=== PATIENT | female | born 1960 | race Caucasian/White ===

== ENCOUNTER 2018-07-11 19:04 | Emergency (ER) | payer OTHER ==
[~2018-07-11] VITALS: Ht 162.6 cm; Wt 120.7 kg
--- NOTE | 2018-07-11 19:25 | ED.ADGEN ---
Past History Past Medical History: CHF, GERD, Hypertension, Other Past Surgical History: Hysterectomy, Other Alcohol Use: None Drug Use: None Adult General Chief Complaint Chief Complaint ".. I think my vertigo is back.. it may be sinusitis.. because I had this dental work here on the [place] and have a temporary bridge... . and last time it caused a sinus infection... I ve had this before... I am fine if I do not tip my head back. .. and it was worse when she accelerated the car....I get nauseated.. and feels like room is spinning.... " HPI HPI Patient is a 57 year old female who presents with above hx and complaints of dizzy and vertigo with head movement. Pt. has nausea with on set of vertigo like symptoms. Patient denies any visual changes. On tilting head back and reclining, pt. report increased sensation of spinning and sensation of nausea. Pt. did exhibit nystagmus with this type of movement. Patient denies any trauma. Patient denies any fever. 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 No history of bad food. No history of travel. Patient reports anti nausea meds helped in the past when she developed this complaint. Patient normally follows with Dr. Malik Schaffer. Review of Systems Review of Systems Constitutional: Denies fever or chills [] Eyes: Denies change in visual acuity, redness, or eye pain [] HENT: Denies nasal congestion or sore throat [] Respiratory: Denies cough or shortness of breath [] Cardiovascular: No additional information not addressed in HPI [] GI: Denies abdominal pain, , vomiting, bloody stools or diarrhea []Hx. complaints of nausea intermittently. : Denies dysuria or hematuria [] Musculoskeletal: Denies back pain or joint pain [] Integument: Denies rash or skin lesions [] Neurologic: Denies headache, focal weakness or sensory changes Pt. complaints of dizziness Endocrine: Denies polyuria or polydipsia [] All other systems were reviewed and found to be within normal limits, except as documented in this note. Family History Family History Noncontributory Current Medications Current Medications Current Medications Medications (Trade) Dose Ordered Sig/Patrick Start Time Stop Time Status Last Admin Dose Admin Aspirin (Children'S Aspirin) 81 mg 1X ONCE 07/11/18 21:00 07/11/18 21:01 DC Carvedilol (Coreg) 6.25 mg BIDWMEALS 07/11/18 21:00 07/11/18 22:23 DC Diphenhydramine HCl (Benadryl) 50 mg STK-MED ONCE 07/11/18 19:55 07/11/18 19:57 DC Lactated Ringer's 1,000 ml @ 1,000 mls/hr Q1H 07/11/18 19:30 07/11/18 20:29 DC 07/11/18 20:26 1,000 MLS/HR Ondansetron HCl (Zofran) 8 mg 1X ONCE 07/11/18 20:00 07/11/18 20:01 DC 07/11/18 20:24 8 MG Prochlorperazine Edisylate (Compazine) 10 mg 1X ONCE 07/11/18 20:00 07/11/18 20:01 DC 07/11/18 20:25 10 MG Allergies Allergies Allergies Coded Allergies Type Severity Reaction Last Updated Verified erythromycin base Allergy Severe 07/11/18 Yes sulfamethoxazole Allergy Severe 07/11/18 Yes trimethoprim Allergy Severe 07/11/18 Yes Physical Exam Physical Exam Constitutional: Mild distress, non-toxic appearance. [] HENT: Normocephalic, atraumatic, bilateral external ears normal, oropharynx moist, no oral exudates, nose normal. [] Eyes: PERRLA, EOMI, conjunctiva normal, no discharge. Glasses] Neck: Normal range of motion, no tenderness, supple, no stridor. [] No bruits. Cardiovascular:Heart rate regular rhythm, no murmur []PMI to the left Lungs & Thorax: Bilateral breath sounds equal at apex with scattered crackles throughout on auscultation [] Abdomen: Bowel sounds normal, soft, no tenderness, no masses, no pulsatile masses. []Obese . Old surgery scars. Skin: Warm, dry, no erythema, no rash. [] Back: No tenderness, no CVA tenderness. [] Extremities: No tenderness, no cyanosis, no clubbing, ROM intact, no edema. [] Neurologic: Alert and oriented X 3, normal motor function, normal sensory function, no focal deficits noted. []DTRs +2 patella and brachial. Capsule Maker equal. Distal sensation present with 128. AC > Bone conduction. Some lateralization to Rt. with Bone conduction. Pt.is. right-hand dominant. Psychologic: Affect anxious, judgement normal, mood normal. [] Current Patient Data Vital Signs Vital Signs Date Time Temp Pulse Resp B/P (MAP) Pulse Ox O2 Delivery O2 Flow Rate FiO2 07/11/18 22:02 82 18 167/93 (117) 97 07/11/18 19:08 97.8 Room Air Lab Results Laboratory Tests Test 07/11/18 19:28 White Blood Count 5.8 x10^3/uL (4.0-11.0) Red Blood Count 4.84 x10^6/uL (3.50-5.40) Hemoglobin 13.4 g/dL (12.0-15.5) Hematocrit 40.2 % (36.0-47.0) Mean Corpuscular Volume 83 fL (79-100) Mean Corpuscular Hemoglobin 28 pg (25-35) Mean Corpuscular Hemoglobin Concent 33 g/dL (31-37) Red Cell Distribution Width 14.0 % (11.5-14.5) Platelet Count 214 x10^3/uL (140-400) Neutrophils (%) (Auto) 78 % (31-73) H Lymphocytes (%) (Auto) 17 % (24-48) L Monocytes (%) (Auto) 5 % (0-9) Eosinophils (%) (Auto) 0 % (0-3) Basophils (%) (Auto) 0 % (0-3) Neutrophils # (Auto) 4.5 x10^3uL (1.8-7.7) Lymphocytes # (Auto) 1.0 x10^3/uL (1.0-4.8) Monocytes # (Auto) 0.3 x10^3/uL (0.0-1.1) Eosinophils # (Auto) 0.0 x10^3/uL (0.0-0.7) Basophils # (Auto) 0.0 x10^3/uL (0.0-0.2) Erythrocyte Sedimentation Rate 36 (0-25) H Prothrombin Time 9.9 SEC (9.4-11.4) Prothrombin Time INR 1.0 (0.9-1.1) PTT 28 SEC (23-33) D-Dimer (Ynes) 0.61 mg/L (0.00-0.50) H Sodium Level 143 mmol/L (136-145) Potassium Level 3.9 mmol/L (3.5-5.1) Chloride Level 105 mmol/L (98-107) Carbon Dioxide Level 29 mmol/L (21-32) Anion Gap 9 (6-14) Blood Urea Nitrogen 14 mg/dL (7-20) Creatinine 1.4 mg/dL (0.6-1.0) H Estimated GFR (Cockcroft-Gault) 38.8 Glucose Level 119 mg/dL (70-99) H Calcium Level 9.3 mg/dL (8.5-10.1) Magnesium Level 1.9 mg/dL (1.8-2.4) Total Bilirubin 0.4 mg/dL (0.2-1.0) Direct Bilirubin 0.1 mg/dL (0.0-0.2) Aspartate Amino Transferase (AST) 14 U/L (15-37) L Alanine Aminotransferase (ALT) 28 U/L (14-59) Alkaline Phosphatase 93 U/L (46-116) Creatine Kinase 20 U/L (26-192) L Troponin I Quantitative < 0.017 ng/mL (0-0.055) [id number]-Gkr-[id number]-Type Natriuretic Peptide 1035 pg/mL (0-124) H Total Protein 7.3 g/dL (6.4-8.2) Albumin 3.6 g/dL (3.4-5.0) Lipase 112 U/L (73-393) EKG EKG My interpretation EKG shows sinus rhythm at 78 bpm. There is some nonspecific contour changes in anterior septal leads. But no findings acute STEMI of contralateral changes.[] Radiology/Procedures Radiology/Procedures My interpretation of chest x-ray shows borderline cardiac silhouette. No large infiltrate. Does have increased cephalization consistent with mild CHF.[] CT head shows an Oval 6 x 6 mm hyperdense lesion right middle of the aubree protruding into the fourth ventricle- possible hemorrhagic lesion, acute hemorrhage, hyper dense mass. See formal report when available. Radiology recommended MRI with and without contrast. Course & Med Decision Making Course & Med Decision Making Pertinent Labs and Imaging studies reviewed. (See chart for details) Discussed presentation, testing and treatment plan with Dr. Alonso- will transfer to [facility] for neurology/ neurosurgery consult- and MRI with and without contrast. [] Final Impression Final Impression 1. Vertigo complaints 2. Possible acute hemorrhagic or hyperdense mass lesion aubree 3. Elevated ESR 36 4. Elevated d-dimer 0.61 5. Elevated creatinine 1.4 6. CHF- [id number][] 7. Hypertension- ( Did not take HTN meds this afternoon) Dragon Disclaimer Dragon Disclaimer This electronic medical record was generated, in whole or in part, using a voice recognition dictation system. Dragon Disclaimer This chart was dictated in whole or in part using Voice Recognition software in a busy, high-work load, and often noisy Emergency Department environment. It may contain unintended and wholly unrecognized errors or omissions. Discharge Summary Visit Information Final Diagnosis Problems Medical Problems: (1) Dizzy Status: Acute Brief Hospital Course Allergies Allergies Coded Allergies Type Severity Reaction Last Updated Verified erythromycin base Allergy Severe 07/11/18 Yes sulfamethoxazole Allergy Severe 07/11/18 Yes trimethoprim Allergy Severe 07/11/18 Yes Vital Signs Vital Signs Date Time Temp Pulse Resp B/P (MAP) Pulse Ox O2 Delivery O2 Flow Rate FiO2 07/11/18 22:02 82 18 167/93 (117) 97 07/11/18 19:08 97.8 Room Air Lab Results Laboratory Tests Test 07/11/18 19:28 White Blood Count 5.8 x10^3/uL (4.0-11.0) Red Blood Count 4.84 x10^6/uL (3.50-5.40) Hemoglobin 13.4 g/dL (12.0-15.5) Hematocrit 40.2 % (36.0-47.0) Mean Corpuscular Volume 83 fL (79-100) Mean Corpuscular Hemoglobin 28 pg (25-35) Mean Corpuscular Hemoglobin Concent 33 g/dL (31-37) Red Cell Distribution Width 14.0 % (11.5-14.5) Platelet Count 214 x10^3/uL (140-400) Neutrophils (%) (Auto) 78 % (31-73) Lymphocytes (%) (Auto) 17 % (24-48) Monocytes (%) (Auto) 5 % (0-9) Eosinophils (%) (Auto) 0 % (0-3) Basophils (%) (Auto) 0 % (0-3) Neutrophils # (Auto) 4.5 x10^3uL (1.8-7.7) Lymphocytes # (Auto) 1.0 x10^3/uL (1.0-4.8) Monocytes # (Auto) 0.3 x10^3/uL (0.0-1.1) Eosinophils # (Auto) 0.0 x10^3/uL (0.0-0.7) Basophils # (Auto) 0.0 x10^3/uL (0.0-0.2) Erythrocyte Sedimentation Rate 36 (0-25) Prothrombin Time 9.9 SEC (9.4-11.4) Prothromb Time International Ratio 1.0 (0.9-1.1) Activated Partial Thromboplast Time 28 SEC (23-33) D-Dimer (Ynes) 0.61 mg/L (0.00-0.50) Sodium Level 143 mmol/L (136-145) Potassium Level 3.9 mmol/L (3.5-5.1) Chloride Level 105 mmol/L (98-107) Carbon Dioxide Level 29 mmol/L (21-32) Anion Gap 9 (6-14) Blood Urea Nitrogen 14 mg/dL (7-20) Creatinine 1.4 mg/dL (0.6-1.0) Estimated GFR (Cockcroft-Gault) 38.8 Glucose Level 119 mg/dL (70-99) Calcium Level 9.3 mg/dL (8.5-10.1) Magnesium Level 1.9 mg/dL (1.8-2.4) Total Bilirubin 0.4 mg/dL (0.2-1.0) Direct Bilirubin 0.1 mg/dL (0.0-0.2) Aspartate Amino Transf (AST/SGOT) 14 U/L (15-37) Alanine Aminotransferase (ALT/SGPT) 28 U/L (14-59) Alkaline Phosphatase 93 U/L (46-116) Creatine Kinase 20 U/L (26-192) Troponin I Quantitative < 0.017 ng/mL (0-0.055) YY-Zus-B-Type Natriuretic Peptide 1035 pg/mL (0-124) Total Protein 7.3 g/dL (6.4-8.2) Albumin 3.6 g/dL (3.4-5.0) Lipase 112 U/L (73-393) Brief Hospital Course Ms. Brennan is a 57 old female who presented with vertigo complaints. Found have possible hemorrhagic lesions aubree. Transfer to [facility] for MRI and neurology and neurosurgery consults as needed. Discharge Information Condition at Discharge: Improved, Stable Disposition/Orders: D/C to Another Facility Dischare Medications Current Medications Lactated Ringer's 1,000 ml @ 1,000 mls/hr Q1H IV Last administered on at 20:26; Admin Dose 1,000 MLS/HR; Start 07/11/18 at 19:30; Stop 07/11/18 at 20: 29; Status DC Ondansetron HCl (Zofran) 8 mg 1X ONCE IV Last administered on 07/11/18at 20:24; Admin Dose 8 MG; Start 07/11/18 at 20:00; Stop 07/11/18 at 20:01; Status DC Prochlorperazine Edisylate (Compazine) 10 mg 1X ONCE IV Last administered on at 20:25; Admin Dose 10 MG; Start 07/11/18 at 20:00; Stop 07/11/18 at 20:01; Status DC Diphenhydramine HCl (Benadryl) 50 mg 1X ONCE IVP Last administered on at 20:25; Admin Dose 50 MG; Start 07/11/18 at 20:00; Stop 07/11/18 at 20:01; Status DC Diphenhydramine HCl (Benadryl) 50 mg STK-MED ONCE .ROUTE ; Start 07/11/18 at 19: 55; Stop 07/11/18 at 19:57; Status DC Carvedilol (Coreg) 6.25 mg BIDWMEALS PO ; Start 07/11/18 at 21:00; Stop 07/11/18 at 22:23; Status DC Aspirin (Children'S Aspirin) 81 mg 1X ONCE PO ; Start 07/11/18 at 21:00; Stop at 21:01; Status DC KARLA SEARS MD Jul 11, 2018 19:25
[2018-07-11] MEDS ORDERED: IV RINGERS SOLUTION,LACTATED 1,000 ML IV SCH (19:30)
[2018-07-11 19:51] LABS: BASO % 0 % (0-3); EOS % 0 % (0-3); HEMATOCRIT 40.2 % (36.0-47.0); HEMOGLOBIN 13.4 g/dL (12.0-15.5); LYMPH % 17 % (24-48); MEAN CORPUSCULAR HEMOGLOBIN 28 pg (25-35); MEAN CORPUSCULAR HGB CONC 33 g/dL (31-37); MEAN CORPUSCULAR VOLUME 83 fL (79-100); MONO # 0.3 x10^3/uL (0.0-1.1); MONO % 5 % (0-9); NEUT # 4.5 x10^3uL (1.8-7.7); NEUT % 78 % (31-73); PLATELET COUNT 214 x10^3/uL (140-400); RED BLOOD COUNT 4.84 x10^6/uL (3.50-5.40); WHITE BLOOD COUNT 5.8 x10^3/uL (4.0-11.0)
[2018-07-11] MEDS ORDERED: diphenhydrAMINE 50 MG/ML VIAL ONE (19:55)
[2018-07-11] MEDS ORDERED: diphenhydrAMINE 50 MG/ML VIAL IVP ONE (20:00)
[2018-07-11] MEDS ORDERED: ONDANSETRON PF 4 MG/2 ML VIAL. IV ONE (20:00)
[2018-07-11] MEDS ORDERED: PROCHLORPERAZINE 10 MG/2 ML VIAL. IV ONE (20:00)
[2018-07-11 20:11] LABS: ALBUMIN 3.6 g/dL (3.4-5.0); CALCIUM 9.3 mg/dL (8.5-10.1); CREATININE 1.4 mg/dL (0.6-1.0); DIRECT BILIRUBIN 0.1 mg/dL (0.0-0.2); GFR 38.8; MAGNESIUM 1.9 mg/dL (1.8-2.4); POTASSIUM 3.9 mmol/L (3.5-5.1); TOTAL BILIRUBIN 0.4 mg/dL (0.2-1.0); TOTAL PROTEIN 7.3 g/dL (6.4-8.2)
[2018-07-11 20:54] LABS: SEDIMENTATION RATE 36 (0-25)
--- NOTE | 2018-07-11 20:58 | RAD ---
PQRS Compliance Statement: One or more of the following individualized dose reduction techniques were utilized for this examination: 1. Automated exposure control 2. Adjustment of the mA and/or kV according to patient size 3. Use of iterative reconstruction technique CT HEAD AND MAXILLOFACIAL WO History: DIZZINESS, NAUSEA AND VOMITING X 6 DAYS Comparison: CT head without contrast March 14, 2018, [facility]. Procedure: Axial images are obtained of the head from the skull base through the vertex without IV contrast. Helical CT imaging of the facial bones is performed. Findings: There is a new oval 6 x 6 x 8 mm hyperdensity just right of midline of the posterior aubree protruding into the fourth ventricle, image 22. The ventricles and sulci are normal for the patient's age. No mass-effect, midline shift, extra-axial fluid collection, or obvious acute infarction is identified. Basilar cisterns are patent. Bone windows demonstrate no acute calvarial abnormality. No acute facial bone fracture. The upper cervical spine alignment is maintained. There is degenerative spondylosis of C5/C6. The visualized paranasal sinuses are clear. Mastoid air cells are well aerated. IMPRESSION: 1. There is a new round 6 mm hyperdensity in the posterior aubree. Considerations include a hemorrhagic lesion, acute hemorrhage, or hyperdense mass. Cavernoma less likely given the finding is new. Recommend further evaluation with MR brain with and without contrast. 2. No acute facial bone fracture. Findings discussed with Audra in the ED at 07/11/2018 8:53 PM. FOR INTERNAL CODING PURPOSES Critical result: RESULT CODE: (C) Electronically signed by: Brody Ulrich MD (07/11/2018 8:54 PM) [id number]
[2018-07-11] MEDS ORDERED: ASPIRIN 81 MG TAB.CHEW PO ONE (21:00)
[2018-07-11] MEDS ORDERED: CARVEDILOL 6.25 MG TABLET PO SCH (21:00)
--- NOTE | 2018-07-11 21:43 | RAD ---
CHEST PA LATERAL History: DIZZINESS, HX CARDIOMYPATHY Comparison: AP chest March 14, 2018, [facility]. Findings: The cardiomediastinal silhouette is normal. Pulmonary vasculature is normal. Stable calcified granuloma right lower lobe. The lungs are clear. No pleural effusion or pneumothorax is seen. There is no acute bone abnormality. IMPRESSION: No acute cardiopulmonary process. Electronically signed by: Brody Ulrich MD (07/11/2018 9:39 PM) [id number]
[2018-07-11 22:02] VITALS: BP 167/93
--- NOTE | 2018-07-12 18:17 | EKG ---
[address] [id number] Test Date: 2018-07-11 Test Time: 19:19:09 Pat Name: YASMANI NASH Department: Room: Gender: F Budget Controller: : 1960 Requested By: KARLA SEARS Order Number: [id number] Reading MD: David Haji Measurements Intervals [place] Rate: 78 P: 32 [place]: 146 QRS: 23 QRSD: 104 T: 29 QT: 380 QTc: 437 Interpretive Statements SINUS RHYTHM QRS(T) CONTOUR ABNORMALITY CONSISTENT WITH ANTEROSEPTAL INFARCT PROBABLY OLD ABNORMAL ECG Electronically Signed On 07-14-2018 17:21:26 ACCOUNT INSTALLATION SPECIALIST by David Haji
[2018-07-12 21:46] LABS: THYROID STIM HORMONE (TSH) 0.631 uIU/mL (0.358-3.740)
== END 2018-07-11 22:21 | disposition short-term general hospital (02) ==
LOC: ER 19:04
DX: R42 Dizziness and giddiness (principal); R70.0 Elevated erythrocyte sedimentation rate; R79.89 Other specified abnormal findings of blood chemistry; R79.1 Abnormal coagulation profile; I11.0 Hypertensive heart disease with heart failure; I50.9 Heart failure, unspecified; K21.9 Gastro-esophageal reflux disease without esophagitis; Z88.1 Allergy status to other antibiotic agents; Z88.2 Allergy status to sulfonamides
CPT/HCPCS: 36415; 70450; 70486; 71046; 80048; 80061; 80076; 82550; 83690; 83735; 83880; 84443; 84484; 85025; 85379; 85610; 85651; 85730; 93005; 96361; 96374; 96375; 99285; J0780; J1200; J2405; J7120